=== PATIENT | female | born 1995 | race Caucasian/White ===

== ENCOUNTER 2022-04-08 04:56 | Emergency (ER) | payer SELFPAY ==
[2022-04-08] MEDS ORDERED: Ketorolac Tromethamine 30 MG/ML VIAL ONE (05:15)
[2022-04-08 05:51] LABS: BHCG - Serum Negative (NEGATIVE); Pregs Control Background? CLEAR/WHITE (CLR/WHITE); Pregs Control Bar Appear? YES (CONTROL BAR)
[2022-04-08 05:58] LABS: #Basophils 0.1 10x3/uL (0.0-0.2); #Eosinphils 0.2 10x3/uL (0.0-0.5); #Monocytes 0.8 10x3/uL (0.0-1.1); #Neutrophils 5.6 10x3/uL (1.5-8.4); %Basophils 0.9 % (0.0-2.0); %Eosinophils 1.3 % (0.0-6.0); %Lymphocytes 46.7 % (18.0-47.0); %Monocytes 6.4 % (0.0-10.0); %Neutrophils 44.5 % (40.0-75.0); Mean Corpuscular HGB CONC 34.3 g/dL (32.0-36.0); Mean Corpuscular Hemoglobin 28.9 pg (27.0-33.0); Mean Corpuscular Volume 84.2 fl (81.6-98.3); Mean Platelet Volume 10.2 fl (7.4-10.4); Platelet Count 480 10x3/uL (150-450); Red Blood Cell (RBC) Count 5.19 10x6/uL (3.90-5.03); White Blood Cell (WBC) Count 12.6 10x3/uL (3.5-10.5)
[2022-04-08 06:04] LABS: ALT (SGPT) 82 U/L (8-55); AST (SGOT) 32 U/L (5-34); Albumin 4.8 g/dL (3.5-5.0); Alkaline Phosphatase 76 U/L (40-110); Anion Gap 21 mmol/L (10-20); BUN (Urea Nitrogen) 11 mg/dL (7.0-18.7); Bilirubin, Total 0.4 mg/dL (0.2-1.2); CK (CPK) 102 U/L (29-168); Calc. Creatinine Clearance 0 mL/min (70-130); Calcium 9.9 mg/dL (7.8-10.44); Carbon Dioxide 19 mmol/L (22-29); Chloride 105 mmol/L (98-107); Estimated GFR 83; Globulin 3.6 g/dL (2.4-3.5); Glucose 120 mg/dL (70-105); Lipase 36 U/L (8-78); Magnesium 2.1 mg/dL (1.6-2.6); Potassium 3.5 mmol/L (3.5-5.1); Protein, Total 8.4 g/dL (6.0-8.3); Sodium 141 mmol/L (136-145)
[2022-04-08 06:14] LABS: Bilirubin Neg (Negative); Blood, Urine 10 (Negative); Clarity Cloudy (Clear); Glucose, Urine (Dipstick) Normal (Negative); Ketone, Urine 5 mg/dL (Negative); Leukocyte 100 (Negative); Nitrite Negative (Negative); Protein, Urine (Dipstick) 30 mg/dl (Neg-Trace); Urobilinogen Normal mg/dL (Less than 2)
[2022-04-08 06:25] LABS: RBC/HPF 0-3 HPF (0-3)
[2022-04-08 06:26] LABS: Bacteria/HPF 2+ HPF (None Seen)
== END 2022-04-08 06:44 | disposition home or self-care (01) ==
LOC: CSHERS 04:56
DX: N30.00 Acute cystitis without hematuria (principal); F41.9 Anxiety disorder, unspecified; R07.9 Chest pain, unspecified
CPT/HCPCS: 36416; 71045; 76705; 80053; 81003; 81015; 82550; 83605; 83690; 83735; 84443; 84703; 85025; 87086; 93005; 96374; J1885